=== PATIENT | female | born 1965 | race Caucasian/White ===

== ENCOUNTER → 2017-04-21 | Outpatient (CLI) | payer BC | LOC: COL.RAD 14:49 | DX: G54.0 Brachial plexus disorders (principal); J98.4 Other disorders of lung; J47.9 Bronchiectasis, uncomplicated | CPT/HCPCS: Q9967 ==

== ENCOUNTER → 2017-10-18 | Outpatient (CLI) | payer BC | LOC: MHCPAIN 08:33 | DX: G89.29 Other chronic pain (principal); M47.812 Spondylosis without myelopathy or radiculopathy, cervical region; R51 Headache; M54.81 Occipital neuralgia | CPT/HCPCS: G0463 ==

== ENCOUNTER → 2017-10-26 | Outpatient (CLI) | payer BC | LOC: MHCPAIN 15:19 | DX: M54.81 Occipital neuralgia (principal) | CPT/HCPCS: J1100 ==

== ENCOUNTER → 2017-12-05 | Outpatient (CLI) | payer BC | LOC: MHCPAIN 15:32 | DX: G89.29 Other chronic pain (principal); M54.81 Occipital neuralgia; R51 Headache | CPT/HCPCS: G0463 ==

== ENCOUNTER → 2018-01-03 | Outpatient (CLI) | payer BC | LOC: COL.RAD 07:28 | DX: M79.601 Pain in right arm (principal); M54.81 Occipital neuralgia; R20.0 Anesthesia of skin; R20.2 Paresthesia of skin; M54.2 Cervicalgia; G47.00 Insomnia, unspecified | CPT/HCPCS: A9503 ==

== ENCOUNTER → 2018-01-04 | Outpatient (CLI) | payer BC | LOC: COL.RAD 12:30 | DX: M54.81 Occipital neuralgia (principal); R20.0 Anesthesia of skin; R20.2 Paresthesia of skin; M79.604 Pain in right leg ==

== ENCOUNTER → 2018-02-28 | Outpatient (CLI) | payer BC | LOC: MC.RAD 01-30 08:00 | DX: Z12.31 Encounter for screening mammogram for malignant neoplasm of breast (principal); Z98.82 Breast implant status ==

== ENCOUNTER 2021-01-21 15:01 | Outpatient (CLI) | payer BC ==
[~2021-01-21] VITALS: Ht 170.2 cm; Wt 59.8 kg
[2021-01-21 15:31] VITALS: BP 96/61; PULSE 61; TEMP 98.6
[2021-01-21] MEDS ORDERED: LIALDA 1.2 GM1.2 GM PO (15:36)
[2021-01-21] MEDS ORDERED: NEURONTIN300 MG/CAP PO (15:36)
== END 2021-01-21 15:58 ==
LOC: EUO 15:01
DX: M81.0 Age-related osteoporosis without current pathological fracture (principal)
CPT/HCPCS: J0897

== ENCOUNTER → 2021-07-28 | Outpatient (CLI) | payer BC ==
[~2021-07-28] MED LIST: LIALDA 1.2 GM1.2 GM PO; NEURONTIN300 MG/CAP PO
== END ==
LOC: MC.RAD 15:45
DX: Z12.31 Encounter for screening mammogram for malignant neoplasm of breast (principal); Z98.82 Breast implant status

== ENCOUNTER 2021-07-29 15:54 | Outpatient (CLI) | payer BC ==
[~2021-07-29] VITALS: Ht 170.2 cm; Wt 60.4 kg
[2021-07-29 16:05] VITALS: BP 129/81; PULSE 61; TEMP 97.9
== END 2021-07-29 16:15 | disposition home or self-care (01) ==
LOC: EUO 15:54
DX: M81.0 Age-related osteoporosis without current pathological fracture (principal)
CPT/HCPCS: J0897

== ENCOUNTER 2022-02-04 15:28 | Outpatient (CLI) | payer BC ==
[~2022-02-04] VITALS: Ht 170.2 cm; Wt 59.1 kg
== END 2022-02-04 16:49 ==
LOC: EUO 15:28
DX: M81.0 Age-related osteoporosis without current pathological fracture (principal)
CPT/HCPCS: J0897

== ENCOUNTER → 2022-03-04 | Outpatient (CLI) | payer BC | LOC: MHCPAIN 10:08 | DX: M54.31 Sciatica, right side (principal); M53.3 Sacrococcygeal disorders, not elsewhere classified; R20.0 Anesthesia of skin | CPT/HCPCS: G0463 ==

== ENCOUNTER → 2022-03-04 | Outpatient (CLI) | payer BC | LOC: COL.RAD 11:39 | DX: M51.36 Other intervertebral disc degeneration, lumbar region (principal); M53.3 Sacrococcygeal disorders, not elsewhere classified ==

== ENCOUNTER → 2022-03-11 | Outpatient (CLI) | payer BC | LOC: MHCPAIN 12:41 | DX: M53.3 Sacrococcygeal disorders, not elsewhere classified (principal); M54.59 Other low back pain | CPT/HCPCS: J3301; Q9967 ==

== ENCOUNTER → 2022-04-12 | Outpatient (CLI) | payer BC | LOC: MHCPAIN 11:38 | DX: M54.31 Sciatica, right side (principal); M79.18 Myalgia, other site; M53.3 Sacrococcygeal disorders, not elsewhere classified | CPT/HCPCS: G0463 ==

== ENCOUNTER 2022-09-30 12:57 | Outpatient (CLI) | payer BC ==
[~2022-09-30] VITALS: Ht 170.2 cm; Wt 60.4 kg
[2022-09-30 13:21] VITALS: BP 127/80; PULSE 60; TEMP 98
[2022-09-30] MEDS ORDERED: PROLIA60 MG/ML SQ (13:28)
[2022-09-30] MEDS ORDERED: ZANAFLEX 4MG TAB4 MG PO (13:28)
--- NOTE | 2022-09-30 13:34 | NUR ---
Pt tolerated injection without issue. She states she had prolia multiple times without issue. She exits dept steady gait.
== END 2022-09-30 13:35 | disposition home or self-care (01) ==
LOC: EUO 12:57
DX: M81.0 Age-related osteoporosis without current pathological fracture (principal)
CPT/HCPCS: J0897

== ENCOUNTER → 2023-03-10 | Outpatient (CLI) | payer BC ==
[~2023-03-10] MED LIST changes: +PROLIA60 MG/ML SQ; +ZANAFLEX 4MG TAB4 MG PO
== END ==
LOC: MC.RAD 16:06
DX: Z12.31 Encounter for screening mammogram for malignant neoplasm of breast (principal)

== ENCOUNTER → 2024-03-12 | Outpatient (CLI) | payer BC | LOC: MC.RAD 11:45 | DX: Z12.31 Encounter for screening mammogram for malignant neoplasm of breast (principal); Z98.82 Breast implant status ==